=== PATIENT | male | born 1970 | race Caucasian/White ===

== ENCOUNTER 2017-10-06 10:48 | Inpatient (IN) | END 2017-10-08 15:30 | disposition home or self-care (01) | DRG 293 ==

== ENCOUNTER 2018-02-12 07:04 | Emergency (ER) | END 2018-02-12 09:12 | disposition home or self-care (01) ==

== ENCOUNTER 2018-02-27 12:49 | Inpatient (IN) | END 2018-03-02 15:53 | disposition home or self-care (01) | DRG 291 ==

== ENCOUNTER 2018-11-06 10:37 | Observation (INO) | payer BC, OTHER ==
[~2018-11-06] VITALS: Ht 162.6 cm; Wt 86.5 kg
[2018-11-06] VITALS (16 sets, daily range): BP systolic 98–129; BP diastolic 55–84; PULSE 80–99; RESP 16–27; Ht 162.6 cm; Wt 86.5 kg
[~2018-11-06 10:37] MED LIST: AMIO200T4 PO; ATOR20TA65 PO; CARV3.1260 PO; DESFLURANE 15 MIN ONE; FURO40TA4 PO; HYDR-3670 PO; LANT3I SC; NOVO3I SC; POTA8CAP PO
[2018-11-06] MEDS ORDERED: MAGN400T27 PO (11:05)
[2018-11-06] MEDS ORDERED: PANT40TA3 PO (11:05)
[2018-11-06] MEDS ORDERED: ASPI-903 PO (11:05)
[2018-11-06] MEDS ORDERED: LISI2.5T59 PO (11:05)
[2018-11-06] MEDS ORDERED: POTA20TA96 PO (11:05)
[2018-11-06] MEDS ORDERED: BUME1TAB ORAL (11:06)
[2018-11-06] MEDS ORDERED: ASPI-817 ORAL (11:06)
[2018-11-06] MEDS ORDERED: SIMV40TA7 ORAL (11:07)
[2018-11-06] MEDS ORDERED: INSU100I33 SC (11:29)
[2018-11-06] MEDS ORDERED: INSU200I SQ (11:29)
--- NOTE | 2018-11-06 12:42 | HPN ---
Date/Time of Note Date/Time of Note DATE: 11/06/18 TIME: 12:42 Interval H&P Admission Note Pt. seen H&P reviewed: No system changes MARYJO PATRICIA MD Nov 06, 2018 12:42
[2018-11-06] MEDS ORDERED: POLYMYXIN/BACITRACIN 1L IRRIG ONE (12:50)
[2018-11-06] MEDS ORDERED: BUPIVACAINE 0.25% (MPF) 30 ML INJ ONE (12:50)
--- NOTE | 2018-11-06 12:51 | PREAC ---
Date/Time of Note Date/Time of Note DATE: 11/06/18 TIME: 12:49 Anesthesia Eval and Record Evaluation Time Pre-Procedure Interview DATE: 11/06/18 TIME: 12:49 Age 48 Sex male NPO: 8 hrs Preoperative diagnosis right inguinal hernia Planned procedure repair hinguinal hernia with mesh, Right Past Medical History Past Medical History: Includes Cardio: HTN, Dyslipidemia, PPM/AICD, CHF (26% cleAREDBY MEDICAL AIDE HIGH RISK) Endo: Diabetes Surgery & Anesthesia Issues No known issue Meds Anticoagulation: No Beta Erica within 24 hr: Yes Reason Beta Erica not given: Pt. not on B-Erica Active Scripts Potassium Chloride* (Potassium Chloride*) 8 Meq Capsule.er, 8 MEQ PO BID for 28 Days, CAP Prov:MARY SHELL 03/02/18 Reported Medications Insulin Lispro (Humalog Kwikpen) 200 Unit/1 Ml Insuln.pen, 0-12 UNIT SQ AC B PRN for PER SLIDING, EA 11/06/18 Insulin Glargine,Hum.rec.anlog (Basaglar Kwikpen U-100) 100 Unit/1 Ml Insuln.pen, 6 UNITS SC BID 11/06/18 Simvastatin (Simvastatin) 40 Mg Tablet, 1 TAB ORAL QHS 11/06/18 Aspirin* (Aspirin* EC) 81 Mg Tablet.dr, 1 TAB ORAL DAILY 11/06/18 Bumetanide* (Bumetanide*) 1 Mg Tablet, 1 TAB ORAL BID 11/06/18 Magnesium Oxide* (Mag-Oxide*) 400 Mg Tablet, 400 MG PO Q48H, TAB 11/06/18 Pantoprazole* (Protonix*) 40 Mg Tablet.dr, 40 MG PO DAILY, TAB 11/06/18 Lisinopril* (Lisinopril*) 2.5 Mg Tablet, 2.5 MG PO DAILY, #30 TAB 11/06/18 Carvedilol* (Carvedilol*) 3.125 Mg Tablet, 3.125 MG PO BID, #60 TAB 10/05/17 Discontinued Reported Medications Potassium Chloride* (Potassium Chloride*) 20 Meq Tablet.er, 20 MEQ PO Q48H, TAB.SA 11/06/18 Aspirin* (Aspirin* Chew) 81 Mg Tab.chew, 81 MG PO DAILY, TAB.CHEW 4/10/19 Amiodarone Hcl* (Amiodarone Hcl*) 200 Mg Tablet, 200 MG PO DAILY, #30 TAB 02/27/18 Discontinued Scripts Hydralazine Hcl* (Hydralazine Hcl*) 10 Mg Tablet, 10 MG PO Q8 for 30 Days, TAB Prov:ARIANATSEVTenishaMARY 03/02/18 Insulin Aspart* (Novolog Insulin Pen*) 100 Unit/Ml Soln, 0 SC .SLIDING SCALE AC for 30 Days, EA Prov:ANATSEVTenishaMARY 03/02/18 Insulin Glargine* (Lantus*) 100 Unit/Ml Soln, 1 UNIT SC BID for 30, #1 VIAL Prov:ANATSEVTenishaMARY 03/02/18 Furosemide* (Furosemide*) 40 Mg Tablet, 40 MG PO BID for 30 Days, TAB Prov:MEZENTSEVA,MARY 03/02/18 Atorvastatin Calcium (Atorvastatin Calcium) 20 Mg Tablet, 20 MG PO QHS for 30 Days, TAB Prov:EUGENIAEVTenishaMARY 03/02/18 Meds reviewed: Yes Allergies Coded Allergies: tetracycline (Verified Allergy, Unknown, 11/06/18) Allergies Reviewed: Yes Labs/Studies Labs Reviewed: Reviewed by anesthesiologist test: N/A Studies: ECG (PACED ), CXR (CARDIOMEGALLY) Pre-procedure Exam Last vitals Vital Signs Date Temp Pulse Resp B/P (MAP) Pulse Ox O2 O2 Flow FiO2 Time Delivery Rate 11/06/18 98.3 99 16 116/84 96 11:36 (95) Airway: Adequate mouth opening Mallampati: Mallampati I Teeth: Normal Lung: Normal Heart: Normal ASA Physical Status ASA physical status: 3 Emergency: None Planned Anesthetic General/MAC: ETT, A Line, CVP Nerve block: TAP (right) Planned Pain Management Single shot nerve block Pre-operative Attestations Prior to commencing anesthesia and surgery, the patient was re-evaluated, there was verification of: *The patient's identity *The results of appropriate recent lab work and preoperative vital signs *The above evaluation not changing prior to induction *Anesthetic plan, risk benefits, alternative and complications discussed with patient/family; questions answered; patient/family understands, accepts and wishes to proceed. JAN GUTIERREZ MD Nov 06, 2018 12:51
[2018-11-06] MEDS ORDERED: ETOMIDATE 20 MG INJ ONE (13:02)
[2018-11-06] MEDS ORDERED: ROCURONIUM 50 MG INJ ONE ×2 (13:02→15:30)
[2018-11-06] MEDS ORDERED: ONDANSETRON 4 MG INJ ONE (13:02)
[2018-11-06] MEDS ORDERED: FENTAnyl 50 MCG/ML VIAL ONE ×2 (13:02→13:45)
[2018-11-06] MEDS ORDERED: MIDAZOLAM 1 MG/ML 2 ML INJ ONE ×2 (13:02)
[2018-11-06] MEDS ORDERED: METOCLOPRAMIDE 10 MG INJ ONE (13:03)
[2018-11-06] MEDS ORDERED: ROPIVACAINE 0.2% 20 ML VIAL ONE (13:04)
[2018-11-06] MEDS ORDERED: CEFAZOLIN 1 GM INJ ONE (13:27)
[2018-11-06] MEDS ORDERED: GLYCOPYRROLATE 0.4 MG INJ ONE (15:30)
[2018-11-06] MEDS ORDERED: NEOSTIGMINE 3 MG/3 ML SYRINGE ONE (15:30)
[2018-11-06] MEDS ORDERED: SUGAMMADEX SODIUM 200 MG/2 ML VIAL IV ONE (15:43)
--- NOTE | 2018-11-06 15:54 | OPR ---
Date/Time of Note Date/Time of Note DATE: 11/06/18 TIME: 15:40 Operative Report Procedure Date: Nov 06, 2018 Preoperative Diagnosis Right inguinoscrotal hernia without obstruction or gangrene Postoperative Diagnosis 1. Right inguinoscrotal hernia without obstruction or gangrene 2. Ascites Operation/Procedure Performed 1. Open right inguinal hernia repair with mesh (modifier 22) 2. Implantation of biological extracellular matrix 3. Drainage of ascites, 1 L Surgeon see signature line Food Mixer MARY Phillips Anesthesia Type: general Anesthesiologist: JAN GUTIERREZ MD Estimated Blood Loss: 50 - 100 ml's Transfusion none Specimen Hernia sac Grafts/Implants 1. Ethicon ultra pro plug and patch size medium 2. Amniofill extracellular biological matrix 500 mg Complications none Pt Condition Post Procedure: stable Disposition: PACU Indications The patient is a 48-year-old male with multiple comorbidities including cardiomyopathy with ejection fraction 25%, pacemaker, diabetes, etc. who presented to the office complaining of a painful right groin bulge. He was diagnosed on clinical exam as having a right inguinal hernia. The patient was scheduled for open right inguinal hernia repair with mesh to prevent sequelae of hernia disease which include, but are not limited to: Incarceration and strangulation. All risks and benefits of the procedure including but not limited to: Wound infection, excessive bleeding, postoperative seroma/hematoma formation, nerve injury which may be temporary versus permanent, injury to the reproductive organs including the vas deferens and the testicle which may lead to testicular atrophy, injury to intra-abdominal organs necessitating subsequent operation, hernia recurrence, chronic pain, etc. were all explained to the patient full detail. The patient was evaluated and cleared by cardiology at moderate to high risk for surgery. Extensive discussion was had given the high risk nature of this procedure due to the patient's multiple comorbidities. We did not discuss all risks and benefits of possible cardiac events that may occur also. Given the severity of the pain that the patient was in due to his hernia, he accepted all of these increased risks and wanted to proceed with surgical repair. The patient fully understood and wished to proceed with the procedure. Informed consent was therefore obtained. Procedure Description The patient was brought to the operating room and placed supine on the operating table. Bilateral sequential compression devices were placed on both lower extremities. A dose of broad-spectrum perioperative intravenous antibiotics was given. After the induction of smooth general anesthesia the patient's abdomen and bilateral groins were prepped and draped in standard surgical fashion. A right-sided tap block was performed by the anesthesiologist and will be documented by her separately. After performance of the surgical timeout an incision was then made using a 15 blade scalpel from the right pubic tubercle towards the right anterior superior iliac spine. Incision was carried down through the skin into the subcutaneous tissues using Bovie electrocautery. There was edema of the subcutaneous tissues along with fibrosis. Payam's fascia was incised and the aponeurosis of the external oblique muscle was reached. A large hernia sac was identified densely adhered to the aponeurosis of the external oblique muscle. The aponeurosis of the external oblique muscle was then incised in the direction of its fibers using a 15 blade scalpel and further opened using Metzenbaum scissors. Great care was taken not to injure the structures within the sac. Using blunt dissection attempts were made to mobilize the spermatic cord off of the floor of the inguinal canal, however, this was extremely difficult given the fibrosis of the sac to the cord and the floor of the inguinal canal. Extensive amount of time above that which is usual and customary for procedure of this type was used to dissect the cord off of the inguinal canal. Finally, we were able to do this and encircled the cord with a Tomas drain. The sac was then opened atraumatically. Immediately, appr oximately 1 L of ascites was drained from the sac. Sac contents were reduced. A finger was kept within the sac isolated from other structures and protect the cord. The cord structures were identified and noted to be densely adhered to the hernia sac. Again, tedious dissection in excess of that which is usual and customary for procedure of this type was performed to isolate the cord structures from the sac and preserve the cord structures throughout the entirety of the procedure. The large hernia sac was densely fibrosed to the surrounding tissues including the testicle. Therefore it was decided to ligate the proximal portion of the sac and leave the distal sac. The sac was encircled and transected. Proximal portion was suture ligated with 0 Vicryl suture and reduced back into the peritoneal cavity. Transected portion of the sac was passed off the field as specimen. A small fat-containing direct hernia was also identified. The fat contents were reduced back into the perineal cavity. A 2-0 Vicryl suture in [id number] fashion was used to close the direct hernia defect. The indirect hernia defect was then repaired using a medium sized Ethicon ultra pro plug. The plug was sutured in place using interrupted 3-0 Vicryl sutures. An onlay mesh was then used to reconstruct the floor of the inguinal canal and further reinforce the repair of the direct hernia defect. It was secured in place using interrupted 2-0 Novafil sutures. Both the plug and the mesh were soaked in antibiotic irrigation prior to placement in the field. A slit was made in the mesh to accommodate the spermatic cord. With the repair complete it was examined and noted to be adequately hemostatic and tension-free. The wound cavity was then irrigated with more antibiotic containing irrigation. To aid in wound regeneration, prevent infection and seroma, 500 mg of biological extracellular matrix powder was spread over the mesh and the floor of the inguinal canal. Spermatic cord was then placed back into its anatomical position. The aponeurosis of the external oblique muscle was then reapproximated using a running 3-0 Vicryl suture. Incision was then closed in layers using a running 3-0 Vicryl suture for the Payam's fascia. The skin was then reapproximated using skin theresa. 0.25% Marcaine local anesthesia was then injected around the incision site. Incision was cleaned and sterile dressings were applied. The patient was awoken from anesthesia and transferred to the recovery room in stable condition. Both testicles were palpated and noted to be in their anatomical positions at the end of the case. All counts were correct at the end of the case 2. Again an amount of time and technical skill above that which is usual and customary for procedure of this type was needed to accomplish the procedure safely. Modifier 22 should then rightfully be applied. MARYJO PATRICIA MD Nov 06, 2018 15:54
[2018-11-06] MEDS ORDERED: HYDROCODONE/APAP (5/325) TAB PO PRN (16:00)
[2018-11-06] MEDS ORDERED: ONDANSETRON 4 MG INJ IV PRN ×2 (16:00→16:30)
[2018-11-06] MEDS ORDERED: morphine 2 MG INJ IV PRN (16:00)
[2018-11-06] MEDS ORDERED: HYDROmorphONE 1 MG/5 ML IV SYRINGE IV ONE (16:27)
[2018-11-06] MEDS ORDERED: HYDROmorphONE 1 MG/5 ML IV SYRINGE IV PRN ×3 (16:30)
[2018-11-06] MEDS ORDERED: OXYCODONE/ACETAMINOPHEN (5/325) TAB PO PRN ×2 (16:30)
[2018-11-06] MEDS ORDERED: hydrALAzine 20 MG INJ IV PRN (16:30)
[2018-11-06] MEDS ORDERED: DIPHENHYDRAMINE 50 MG INJ IV PRN (16:30)
[2018-11-06] MEDS ORDERED: MEPERIDINE 25 MG INJ IV PRN (16:30)
[2018-11-06] MEDS ORDERED: FENTAnyl 50 MCG/ML VIAL IV PRN ×3 (16:30)
[2018-11-06] MEDS ORDERED: ALBUTEROL 0.083% (NEB) 2.5 MG/3 ML AMP HHN PRN (16:30)
[2018-11-06] MEDS ORDERED: METOPROLOL 5 MG INJ ONE (17:10)
[2018-11-06] MEDS ORDERED: ESMOLOL 10 ML ONE (17:10)
[2018-11-06] MEDS: INSULIN ASPART [NOVOLOG] 3 ML PEN SC SCH ×3 (17:55→21:00)
--- NOTE | 2018-11-06 18:02 | HP ---
Date/Time of Note Date/Time of Note DATE: 11/06/18 TIME: 17:52 Assessment/Plan VTE Prophylaxis Risk score (from Ns)>0 risk: 3 SCD applied (from Ns): Yes Pharmacological prophylaxis: NA/contraindicated Pharm contraindication: surgical contra Lines/Catheters IV Catheter Type (from Nrsg): Peripheral IV Assessment/Plan Assessment/Plan -Right inguinoscrotal hernia without obstruction or gangrene, status post open right inguinal hernia repair with mesh, status post drainage of ascites by Dr. Funk on 11/06/2018. Continue gentle hydration and postoperative antibiotic. Continue [place] and morphine as needed for pain and Zofran as needed for nausea. -Cardiomyopathy with ejection fraction of 26% -CHF -ICD -Hypertension -Diabetes Further recommendations based on clinical course. Plan of care discussed with Dr. Sotelo. Results 24hrs Laboratory Tests Test 11/06/18 11:23 11/06/18 15:56 Bedside Glucose 108 132 HPI/ROS Admit Date/Time Admit Date/Time Nov 06, 2018 at 16:01 Hx of Present Illness The patient is a 48-year-old gentleman with extensive medical history including cardiomyopathy with ejection fraction of 26% per Lexiscan, congestive heart failure, history of PVCs status post ablation, hypertension, hyperlipidemia, diabetes and history of kidney stones. Patient was evaluated by Dr. Funk in general surgery consultation for her right large inguinal hernia. Patient was brought to the hospital and underwent open right inguinal hernia repair with mesh and drainage of ascites. Postoperatively patient experiencing significant pain and patient has been admitted for further evaluation and management to telemetry floor. ROS 12 point review of system is negative except for what mentioned in HPI PMH/Family/Social Past Medical History Medical History: congestive heart failure, diabetes, high cholesterol, hypertension Medications Current Medications Morphine Sulfate (morphine) 2 mg Q4 PRN IV PAIN LEVEL 6-10; Start 11/06/18 at 16:00 Acetaminophen/ Hydrocodone Bitart ([place] (5/325)) 1 tab Q6H PRN PO PAIN LEVEL 6-10; Start 11/06/18 at 16:00 Acetaminophen (Tylenol Tab) 650 mg Q6H PRN PO MILD PAIN(1-3)OR ELEVATED TEMP; Start 11/06/18 at 16:00 Ondansetron HCl (Zofran Inj) 4 mg Q6H PRN IV NAUSEA AND/OR VOMITING; Start 05/17 at 16:00 Famotidine (Pepcid Iv) 20 mg Q12 IV ; Start 11/06/18 at 21:00 Docusate Sodium (Colace) 100 mg TID PO ; Start 11/06/18 at 21:00 Acetaminophen/ Hydrocodone Bitart ([place] (5/325)) 2 tab Q4H PRN PO MODERATE PAIN LEVEL 4-6; Start 11/06/18 at 16:00 Insulin Aspart (Novolog Insulin Pen) NOVOLOG *MILD* ALGORITHM WITH MEALS BEDTIME SC ; Start 11/06/18 at 17:55 Hydromorphone HCl (Dilaudid) 0.2 mg PACU PRN IV MILD PAIN 1-3; Start 11/06/18 at 16:30; Stop 11/06/18 at 21:00 Hydromorphone HCl (Dilaudid) 0.4 mg PACU PRN IV MOD PAIN 4-6; Start 11/06/18 at 16:30; Stop 11/06/18 at 21:00 Hydromorphone HCl (Dilaudid) 0.6 mg PACU PRN IV SEVERE PAIN 7-10 Last administered on 11/06/18at 16:32; Admin Dose 0.6 MG; Start 11/06/18 at 16:30; Stop 11/06/18 at 21:00 Fentanyl (Sublimaze) 25 mcg PACU ORDER PRN IV MILD PAIN 1-3; Start 11/06/18 at 16:30; Stop 11/06/18 at 21:00 Fentanyl (Sublimaze) 50 mcg PACU ORDER PRN IV MOD PAIN 4-6; Start 11/06/18 at 16:30; Stop 11/06/18 at 21:00 Fentanyl (Sublimaze) 75 mcg PACU ORDER PRN IV SEVERE PAIN 7-10; Start 11/06/18 at 16:30; Stop 11/06/18 at 21:00 Oxycodone/ Acetaminophen (Percocet (5/ 325)) 1 tab PACU ORDER PRN PO .PAIN 1-5; Start 11/06/18 at 16:30; Stop 11/06/18 at 21:00 Oxycodone/ Acetaminophen (Percocet (5/ 325)) 2 tab PACU ORDER PRN PO .PAIN 6-10; Start 11/06/18 at 16:30; Stop 11/06/18 at 21:00 Ondansetron HCl (Zofran Inj) 4 mg PACU ORDER PRN IV NAUSEA/VOMITING; Start 11/06/18 at 16:30; Stop 11/06/18 at 21:00 Hydralazine HCl (Apresoline) 5 mg PACU ORDER PRN IV HIGH BLOOD PRESSURE; Start 11/06/18 at 16:30; Stop 11/06/18 at 21:00 Albuterol (Proventil 0.083% (Neb)) 2.5 mg PACU ORDER PRN HHN .WHEEZING; Start 11/06/18 at 16:30; Stop 11/06/18 at 21:00 Meperidine HCl (Demerol) 25 mg PACU ORDER PRN IV .RIGORS; Start 11/06/18 at 16:30; Stop 11/06/18 at 21:00 Diphenhydramine HCl (Benadryl) 25 mg PACU ORDER PRN IV .PRURITUS; Start 11/06/18 at 16:30; Stop 11/06/18 at 21:00 Coded Allergies: tetracycline (Verified Allergy, Unknown, 11/06/18) Past Surgical History Past Surgical Hx: other (Status post lithotripsy for kidney stones, status post angiogram status post ICD placement in 2012 status post ablation in 2018) Family History Significant Family History: heart disease Social History Alcohol Use: none Smoking Status: Never smoker Drug Use: none Exam/Review of Systems Vital Signs Vitals Vital Signs Date Temp Pulse Resp B/P (MAP) Pulse Ox O2 O2 Flow FiO2 Time Delivery Rate 11/06/18 Simple 6.0 17:31 Mask 11/06/18 98.0 91 20 119/76 96 17:19 (90) Exam Constitutional: alert, oriented Head: normocephalic Neck: supple Respiratory: clear to auscultation Cardiovascular: other (V paced) Gastrointestinal: soft, non-tender Genitourinary - Male: other (Status post right inguinal hernia repair) Musculoskeletal: nl extremities to inspection Extremities: normal pulses TANNER DEE Nov 06, 2018 18:02
[2018-11-06] MEDS ORDERED: GLUCOSE GEL 15 GRAM TUBE BUCCAL PRN (19:00)
[2018-11-06] MEDS ORDERED: GLUCAGON 1 MG INJ IM PRN (19:00)
[2018-11-06] MEDS ORDERED: GLUCOSE GEL 15 GRAM TUBE PO PRN ×2 (19:00)
[2018-11-06] MEDS ORDERED: DEXTROSE 50% 50 ML SYRINGE IV PRN ×2 (19:00)
[2018-11-06] MEDS ORDERED: INSULIN GLARGINE [LANTus] (100 UNITS/ML) SYG SC SCH (20:00)
[2018-11-06] MEDS: FAMOTIDINE 20 MG INJ IV SCH (21:51)
[2018-11-06] MEDS: ACETAMINOPHEN 325 MG TAB PO PRN (21:51)
[2018-11-06] MEDS: POTASSIUM CHLORIDE (SR) 8 MEQ CAP PO SCH (21:51)
[2018-11-06] MEDS: DOCUSATE SODIUM 100 MG CAP PO SCH (21:51)
[2018-11-07] VITALS (7 sets, daily range): BP systolic 96–125; BP diastolic 62–77; PULSE 77–95; RESP 16–19
[2018-11-07] MEDS ORDERED: ACCU-CHEK XX SCH (02:00)
[2018-11-07] MEDS: ACETAMINOPHEN 325 MG TAB PO PRN ×2 (03:27→15:12)
[2018-11-07] MEDS ORDERED: BUMETANIDE 1 MG TAB PO SCH (06:00)
[2018-11-07] MEDS: INSULIN ASPART [NOVOLOG] 3 ML PEN SC SCH ×5 (07:55→13:01)
--- NOTE | 2018-11-07 08:19 | PAC ---
Date/Time of Note Date/Time of Note DATE: 11/07/18 TIME: 08:18 Post-Anesthesia Notes Post-Anesthesia Note Last documented vital signs Vital Signs Date Temp Pulse Resp B/P (MAP) Pulse Ox O2 O2 Flow FiO2 Time Delivery Rate 11/07/18 92 08:11 11/07/18 97.5 90 16 100/69 92 Nasal 2.0 07:18 (79) Cannula Activity: WNL Respiratory function: WNL Cardiovascular function: WNL Mental status: Baseline Pain reasonably controlled: Yes Hydration appropriate: Yes Nausea/Vomiting absent: No JAN GUTIERREZ MD Nov 07, 2018 08:19
--- NOTE | 2018-11-07 08:48 | PN ---
Date/Time of Note Date/Time of Note DATE: 11/07/18 TIME: 08:45 Assessment/Plan Lines/Catheters IV Catheter Type (from Nrsg): Peripheral IV Assessment/Plan Assessment/Plan 48-year-old male status post open right inguinal hernia repair with mesh, drainage of ascites * Stable * Hep-Lock IV fluids/out of bed/incentive spirometry * Surgically stable for discharge home if medically cleared * Follow-up in office in 2 weeks Subjective 24 Hr Interval Summary Feeling much better. Pain adequately controlled. Tolerating diet. Hemodynamically stable. Afebrile. Exam/Review of Systems Vital Signs Vitals Vital Signs Date Temp Pulse Resp B/P (MAP) Pulse Ox O2 O2 Flow FiO2 Time Delivery Rate 11/07/18 92 08:11 11/07/18 97.5 16 100/69 92 Nasal 2.0 07:18 (79) Cannula Intake and Output 11/06/18 11/06/18 11/07/18 1515:00 23:00 07:00 IntakeIntake Total 1000 ml OutputOutput Total 15 ml BalanceBalance 985 ml Exam Free Text/Dictation GENERAL: Awake, alert, oriented x 3. No acute distress. NECK: Supple CARDIOVASCULAR: S1S2, paced rhythm. RESPIRATORY: Clear to auscultation bilaterally. ABDOMEN: Soft, bowel sounds present, nontender to palpation. DRESSINGS: Clean and dry without saturation EXTREMITIES: Free range of motion x 4 Results Result Diagram: 11/07/1820 11/07/18619 MARYJO PATRICIA MD Nov 07, 2018 08:48
[2018-11-07] MEDS: POTASSIUM CHLORIDE (SR) 8 MEQ CAP PO SCH (08:52)
[2018-11-07] MEDS: FAMOTIDINE 20 MG INJ IV SCH (08:52)
[2018-11-07] MEDS: DOCUSATE SODIUM 100 MG CAP PO SCH ×2 (08:52→15:12)
[2018-11-07] MEDS ORDERED: PANTOPRAZOLE (EC) 40 MG TAB PO SCH (09:00)
[2018-11-07] MEDS: HYDROCODONE/APAP (5/325) TAB PO PRN ×2 (09:43→16:37)
[2018-11-07] MEDS ORDERED: HYDR-3601 PO (15:15)
--- NOTE | 2018-11-10 22:50 | DS ---
Date/Time of Note Date/Time of Note DATE: 11/10/18 TIME: 22:49 Discharge Summary Admission/Discharge Info Admit Date/Time Nov 06, 2018 at 16:01 Discharge Date/Time Nov 07, 2018 at 17:30 Patient Condition: Stable Hx of Present Illness The patient is a 48-year-old gentleman with extensive medical history including cardiomyopathy with ejection fraction of 26% per Lexiscan, congestive heart failure, history of PVCs status post ablation, hypertension, hyperlipidemia, diabetes and history of kidney stones. Patient was evaluated by Dr. Funk in general surgery consultation for her right large inguinal hernia. Patient was b rought to the hospital and underwent open right inguinal hernia repair with mesh and drainage of ascites. Postoperatively patient experiencing significant pain and patient has been admitted for further evaluation and management to telemetry floor. Hospital Course Assessment/Plan -Right inguinoscrotal hernia without obstruction or gangrene, status post open right inguinal hernia repair with mesh, status post drainage of ascites by Dr. Funk on 11/06/2018. Continue gentle hydration and postoperative antibiotic. Continue [place] and morphine as needed for pain and Zofran as needed for nausea. -Cardiomyopathy with ejection fraction of 26% -CHF -ICD -Hypertension -Diabetes Plan of care discussed with Dr. Sotelo. Home Meds Active Scripts Hydrocodone Bit-Acetaminophen (Hydrocodone Bit-APAP) 5-325MG Tablet, 1 TAB PO Q6H PRN for PAIN LEVEL 6-10, #20 TAB Prov:TANNER DEE 11/07/18 Potassium Chloride* (Potassium Chloride*) 8 Meq Capsule.er, 8 MEQ PO BID for 28 Days, CAP Prov:MARY SHELL 03/02/18 Reported Medications Insulin Lispro (Humalog Kwikpen) 200 Unit/1 Ml Insuln.pen, 0-12 UNIT SQ AC B PRN for PER SLIDING, EA 11/06/18 Insulin Glargine,Hum.rec.anlog (Basaglar Kwikpen U-100) 100 Unit/1 Ml Insuln.pen, 6 UNITS SC BID 11/06/18 Simvastatin (Simvastatin) 40 Mg Tablet, 1 TAB ORAL QHS 11/06/18 Aspirin* (Aspirin* EC) 81 Mg Tablet., 1 TAB ORAL DAILY 11/06/18 Bumetanide* (Bumetanide*) 1 Mg Tablet, 1 TAB ORAL BID 11/06/18 Magnesium Oxide* (Mag-Oxide*) 400 Mg Tablet, 400 MG PO Q48H, TAB 11/06/18 Pantoprazole* (Protonix*) 40 Mg Tablet.dr, 40 MG PO DAILY, TAB 11/06/18 Lisinopril* (Lisinopril*) 2.5 Mg Tablet, 2.5 MG PO DAILY, #30 TAB 11/06/18 Carvedilol* (Carvedilol*) 3.125 Mg Tablet, 3.125 MG PO BID, #60 TAB 10/05/17 Discontinued Reported Medications Potassium Chloride* (Potassium Chloride*) 20 Meq Tablet.er, 20 MEQ PO Q48H, TAB.SA 11/06/18 Aspirin* (Aspirin* Chew) 81 Mg Tab.chew, 81 MG PO DAILY, TAB.CHEW 11/06/18 Amiodarone Hcl* (Amiodarone Hcl*) 200 Mg Tablet, 200 MG PO DAILY, #30 TAB 02/27/18 Discontinued Scripts Hydralazine Hcl* (Hydralazine Hcl*) 10 Mg Tablet, 10 MG PO Q8 for 30 Days, TAB Prov:MARY SHELL 03/02/18 Insulin Aspart* (Novolog Insulin Pen*) 100 Unit/Ml Soln, 0 SC .SLIDING SCALE AC for 30 Days, EA Prov:MARY SHELL 03/02/18 Insulin Glargine* (Lantus*) 100 Unit/Ml Soln, 1 UNIT SC BID for 30, #1 VIAL Prov:MARY SHELL 03/02/18 Furosemide* (Furosemide*) 40 Mg Tablet, 40 MG PO BID for 30 Days, TAB Prov:MARY SHELL 03/02/18 Atorvastatin Calcium (Atorvastatin Calcium) 20 Mg Tablet, 20 MG PO QHS for 30 Days, TAB Prov:MARY SHELL 03/02/18 Follow-up Plan Follow-up with Dr. Funk in 2 weeks Primary Care Provider Not On Staff Doctor Time spent on discharge: > 30 minutes Pending Labs Laboratory Tests Test 11/10/18 17:18 Lab Scanned Report REFERENCE LAB [id number] TANNER DEE Nov 10, 2018 22:50
== END 2018-11-07 17:30 | disposition home or self-care (01) ==
LOC: SDS 10:37 → REC 16:01 → SDS 16:01 → TEL 17:17
PROVIDERS: ADMIT Surgery; ATTEND Surgery
DX: K40.90 Unilateral inguinal hernia, without obstruction or gangrene, not specified as recurrent (principal); R18.8 Other ascites; I11.0 Hypertensive heart disease with heart failure; I50.9 Heart failure, unspecified; I43 Cardiomyopathy in diseases classified elsewhere; E11.9 Type 2 diabetes mellitus without complications; Z79.4 Long term (current) use of insulin; Z79.82 Long term (current) use of aspirin
CPT/HCPCS: 10140; 49507; 80048; 82962; 85025; 85610; 88302; C1781; J0690; J1170; J1815; J2250; J2405; J2710; J2765; J2795; J3010; Z7500; Z7512; Z7610; G0378